=== PATIENT | female | born 1940 | race Caucasian/White ===

== ENCOUNTER 2021-12-02 10:53 | Emergency (ER) | payer MEDICARE, SELFPAY ==
--- NOTE | 2021-12-02 10:53 | ED.URI ---
HPI - URI/Sore Throat General Chief Complaint: Upper Respiratory Infection Stated Complaint: Cough Time Seen by Provider: 12/02/21 10:53 Source: patient and RN notes reviewed History of Present Illness HPI Narrative: Patient is an 81-year-old female presents the urgent care with her daughter with complaints of a cough since . Patient states she is also had some fatigue and nausea without vomiting. States that the cough is worse at night and she has been taking Mucinex as directed by her doctor. Denies of any fevers. Denies of any ill exposures. Patient has not tested herself for COVID at home. Patient's doctor would not see her until she was tested for COVID. Patient has not done an at home COVID test however her daughter has tested herself, which was negative. No other acute complaints. Denies of any chest pain or shortness of breath. No acute distress noted. Patient aware of the plan of care. Some parts of this dictation were generated by voice recognition software and may contain typographical and/or grammatical inaccuracies. Related Data Home Medications Medication Instructions Recorded Confirmed allopurinol 100 mg tablet 100 mg PO DAILY 12/02/21 12/02/21 amlodipine 10 mg tablet 10 mg PO DAILY 12/02/21 12/02/21 aspirin 81 mg tablet,delayed 81 mg PO DAILY 12/02/21 12/02/21 release (Adult Low Dose Aspirin) ergocalciferol (vitamin D2) 1,250 1,250 mcg PO WEEKLY 12/02/21 12/02/21 mcg (50,000 unit) capsule (Vitamin D2) furosemide 20 mg tablet 20 mg PO DAILY 12/02/21 12/02/21 hydrocodone 5 mg-acetaminophen 325 1 tablet PO TID PRN Pain 12/02/21 12/02/21 mg tablet losartan 100 mg tablet 100 mg PO DAILY 12/02/21 12/02/21 metoprolol tartrate 50 mg tablet 50 mg PO BID 12/02/21 12/02/21 niacin 500 mg tablet 500 mg PO DAILY 12/02/21 12/02/21 Allergies Allergy/AdvReac Type Severity Reaction Status Date / Time No Known Allergies Allergy Verified 12/02/21 11:19 Review of Systems Review of Systems: CONSTITUTIONAL: Denies fever, chills, or sweats. Reports of fatigue EYES: Denies visual changes, redness, or discharge. ENT: Denies rhinorrhea, congestion, sore throat, or otalgia. CARDIOVASCULAR: Denies chest pain, palpitations, or edema. RESPIRATORY: Reports of cough without dyspnea GASTROINTESTINAL: Denies abdominal pain, nausea, vomiting, or diarrhea. GENITOURINARY: Denies dysuria or hematuria. SKIN: Denies rash or itching. MUSCULOSKELETAL: Denies back pain, joint pain, or myalgia. NEUROLOGIC: Denies headache, numbness, or weakness. All other systems reviewed are negative, except as documented in HPI. PMFSH Comments At the time of my signature, I reviewed and agree with the nursing past medical, surgical, social, and family history. There is no relevant family history pertinent to the patient complaint. Exam Narrative: GENERAL: This is a well-nourished, well-developed patient, in no apparent distress. HEAD: normocephalic, atraumatic. EYES: PERRL. Sclera clear/white. Vision is grossly intact. EARS: External ears normal, auditory canals clear and without drainage, TMs normal without perforation. Hearing grossly intact. NOSE: External nose normal with no obvious nasal discharge, nares without redness, no rhinorrhea. THROAT: Mucous membranes moist, posterior pharynx clear. Mild postnasal drainage NECK: Neck supple CARDIOVASCULAR: Regular rate and rhythm without murmurs, gallops, or rubs. RESPIRATORY: Clear to auscultation. Slight crackles bibasilar. No wheezes, rales, or rhonchi. SKIN: warm, intact with no suspicious lesions or rash, good texture and turgor. NEURO: awake, alert, and oriented to person, place and time. There were no obvious focal neurologic abnormalities. EXTREMITIES: No clubbing, cyanosis, or edema. Course Course Level of Care: Express Care Visit Vital Signs Vital signs: Vital Signs Temperature 97.5 F L 12/02/21 11:00 Pulse Rate 58 L 12/02/21 11:00 Respiratory Rate 20
[2021-12-02 11:00] VITALS: BP 158/70; PULSE 58; RESP 20; TEMP 36.4; O2SAT 98
== END 2021-12-02 11:25 | disposition home or self-care (01) ==
PROVIDERS: Emergency Provider Nurse Practitioner Family
DX: U07.1 COVID-19 (principal); Z79.82 Long term (current) use of aspirin; E78.00 Pure hypercholesterolemia, unspecified; I10 Essential (primary) hypertension; M10.9 Gout, unspecified
CPT/HCPCS: 87426; 99203; C9803; G0463

== ENCOUNTER 2023-08-14 13:19 | Emergency (ER) | payer MEDICARE, SELFPAY ==
[2023-08-14 13:29] VITALS: BP 96/52; PULSE 58; RESP 20; TEMP 36.3; O2SAT 99
[2023-08-14 14:45] VITALS: BP 96/52; PULSE 58
[2023-08-14 14:50] VITALS: BP 77/48; PULSE 60
--- NOTE | 2023-08-14 15:33 | ED.GENADULT ---
HPI - General Adult General Chief complaint: Nausea/Vomiting/Diarrhea Stated complaint: diarrhea/weak Source: patient Mode of arrival: ambulatory Limitations: no limitations History of Present Illness HPI narrative: Pt presents for evaluation of diarrhea. Symptom onset one week ago. She is having 3-4 episodes per day. No blood or mucus in the stool. Denies any fever, abdominal pain or vomiting. She does have chills and nausea. No recent sick contacts to her knowledge. No recent antibiotic use. No recent travel. She does feel weak and dizzy when ambulating, which is new. She has a chronic cough forever . She is not sure whether she has underlying CHF. She lives independently in a one story home and uses a walker to ambulate. Her sister drove her here today for evaluation. Related Data Home Medications Medication Instructions Recorded Confirmed allopurinol 100 mg tablet 100 mg PO DAILY 08/14/23 08/14/23 Allergies Allergy/AdvReac Type Severity Reaction Status Date / Time niacin Allergy Unknown Verified 08/14/23 13:36 NSAIDS (Non-Steroidal Allergy Unknown Verified 08/14/23 13:36 Anti-Inflamma Review of Systems Review of Systems: CONSTITUTIONAL: Reports chills and feeling weak. Denies fever or sweats. EYES: Denies visual changes, redness, or discharge. ENT: Denies rhinorrhea, congestion, sore throat, or otalgia. CARDIOVASCULAR: Denies chest pain, palpitations, or edema. RESPIRATORY: Reports chronic cough, unchanged GASTROINTESTINAL: Reports nausea and diarrhea. Denies abdominal pain or vomiting GENITOURINARY: Denies dysuria or hematuria. SKIN: Denies rash or itching. MUSCULOSKELETAL: Denies back pain, joint pain, or myalgia. NEUROLOGIC: Reports dizziness when standing and ambulating. Denies headache, numbness, or weakness. PSYCHIATRIC: Denies anxiety or depression. [facility] Past Medical History Medical History Perforated diverticulum Surgical History Surgical History H/O laparoscopy Family History Family History Mother Breast cancer Mother Acute depression Hypertension Mother Heart disease Sibling Breast cancer Sibling Diabetes mellitus Cerebrovascular accident Father Hypertension Social History Social History Smoking status: Former smoker Additional smoking assessment comments: pt states she only smoked when she was a teenager Spiritual care concerns: No Exam Narrative: GENERAL: Well-appearing, well-nourished, and in no acute distress. HEAD: Normocephalic, atraumatic. EYES: PERRLA and EOMI. ENT: Nares clear, no rhinorrhea or epistaxis. Mucous membranes moist. Oropharynx without tonsillar hypertrophy exudate or other lesions. Bilateral TMs pearly gutierrez nonbulging NECK: Supple. No adenopathy or masses. No carotid bruits or JVD CHEST: Clear to auscultation. No respiratory distress. No wheezes rales or rhonchi HEART: Regular rate and rhythm. No murmur heard. Normal peripheral pulses. ABDOMEN: Soft, nontender, nondistended, normal active bowel sounds. EXTREMITIES: Normal range of motion. No edema. SKIN: Warm, dry, no rash. NEURO: No focal deficits. Alert and oriented x3. PSYCH: Normal mood and affect. Course Course Emergency Course: This is an 83-year-old female who presented for evaluation diarrhea, nausea, dizziness and weakness. Blood pressure was in the 90s over 50s in sitting position but dropped to 77/48 with standing. In light of recent diarrhea, concern would be for dehydration. I recommended patient go to the hospital for further evaluation. [facility] as her facility of choice. I contacted the emergency department at [facility] and spoke with RN, Brenda, who indicated that Dr Gonsales would accept pt for t
== END 2023-08-14 15:00 | disposition short-term general hospital (02) ==
PROVIDERS: Emergency Provider Nurse Practitioner
DX: I95.9 Hypotension, unspecified (principal); R19.7 Diarrhea, unspecified; R42 Dizziness and giddiness; Z87.891 Personal history of nicotine dependence
CPT/HCPCS: 99212; G0463